=== PATIENT | female | born 1960 | race Caucasian/White ===

== ENCOUNTER 2018-08-10 08:49 | Emergency (ER) | payer BC ==
[~2018-08-10] VITALS: Ht 172.7 cm; Wt 67.1 kg
[2018-08-10] MEDS ORDERED: METOPROLOL SUCC25 MG (09:15)
[2018-08-10 09:44] VITALS: BP 160/89
== END 2018-08-10 09:45 | disposition home or self-care (01) ==
LOC: FSED 08:49
DX: R05 Cough (principal); J00 Acute nasopharyngitis [common cold]; J01.00 Acute maxillary sinusitis, unspecified; I10 Essential (primary) hypertension
CPT/HCPCS: 99282